=== PATIENT | female | born 1945 | race Caucasian/White ===

== ENCOUNTER 2016-10-17 16:34 | Inpatient (IN) ==
[2016-10-17] MEDS ORDERED: VANCOMYCIN 1 GM/NS 1 GM/250 ML IVPB IV ONE (17:15)
--- NOTE | 2016-10-17 17:16 | PROVIDER DOCUMENTATION ---
HPI-Rash/Wound/ReCheck - General Chief Complaint: Insect Bite/Sting Stated Complaint: poss infection Time Seen by Provider: 10/17/16 17:05 Source: patient, family Allergies/Adverse Reactions: Allergies Allergy/AdvReac Type Severity Reaction Status Date / Time No Known Allergies Allergy Verified 10/17/16 17:19 Home Medications: Home Medication List Medication Instructions Recorded Confirmed Last Taken Type Amitriptyline [Elavil] 100 mg PO HS 11/23/14 10/17/16 10/17/16 History Omeprazole [Prilosec] 40 mg PO DAILY 11/23/14 10/17/16 1 Day Ago History Docusate Sodium [Colace] 100 mg PO BID #60 capsule 11/29/14 10/17/16 1 Day Ago Rx SIMVAstatin [Zocor] 20 mg PO QPM #0 tablet 01/10/15 10/17/16 10/17/16 Rx - History of Present Illness-Dermatology Nature of Presenting Problem: 70 year old WF presents with c/o pain (dull), swelling and erythema to the left lateral chest wall for 1 week. pt reports fever, max temp 102 at home, chills, fatigue, loss of appetite and nausea. pt reports she has not eaten much today and is dizzy/lightheaded with standing. pain to chest wall is exacerbated with movement, sitting against chairs. pt has been evaluated at an outside clinic, placed on keflex without improvement. pt reports she may have been bitten by an insect. Location: reports: chest Quality: reports: painful, stinging Severity: reports: mild Onset/Duration: reports: 1 week ago Timing: reports: still present, constant Context/Associated Symptoms: reports: abscess, edema, fever Identifiable cause?: No Exposure: reports: unknown cause Locality of Occurance: Home Similar Symptoms Previously?: Yes Recently seen or treated by another doctor?: Yes Review of Systems - Adult - REVIEW OF SYSTEMS - ADULT Constitutional: reports: see HPI, chills, fever, fatique Eyes: reports: no symptoms reported. denies: discharge, blurred vision, double vision Ears, Nose, Mouth & Throat: reports: no symptoms reported. denies: ear discharge, ear pain, nose pain, loose teeth, throat pain, throat swelling Cardiovascular: reports: no symptoms reported. denies: chest pain, palpitations , syncope Respiratory: reports: no symptoms reported. denies: chronic cough, cough, shortness of breath, wheezing Gastrointestinal: reports: see HPI, nausea, poor appetite. denies: abdominal pain, diarrhea, vomiting Genitourinary: reports: no symptoms reported. denies: dysuria, hematuria, urgency Musculoskeletal: reports: no symptoms reported. denies: bone pain, joint pain, joint swelling, neck pain Integumentary: reports: see HPI, rash, skin sores/ulcer (abscess left chest wall ) Neurological: reports: no symptoms reported. denies: ataxia, dizziness/vertigo , headache/migraines Psychiatric: reports: no symptoms reported Endocrine: reports: no symptoms reported Hematologic/Lymphatic: reports: no symptoms reported Allergic/Immunologic: reports: no symptoms reported. denies: frequent infections All Other Systems: Reviewed and Negative Past History - Adult - PAST MEDICAL HISTORY-ADULT Review of Records: reports: Old Records Reviewed, Nursing Assessment Review, Medications Reviewed, Social history reviewed & non-contributory. Major Childhood Illnesses: reports: denies history Cardiovascular: reports: hyperlipidemia Respiratory: reports: denies history Gastrointestinal: reports: GERD Obstetrical/Gynecological: reports: denies history Genitourinary: reports: denies history Musculoskeletal: reports: denies history Neurological: reports: denies history Endocrine/Immune: reports: denies history Other Conditions: reports: denies history Additional History: Chronic Pain - PRIOR SURGERIES/PROCEDURES Surgical/Procedure History: reports: reviewed, not pertinent - PRIOR HOSPITALIZATIONS Prior Hospitalizations: reports: for other non-related - IMMUNIZATION STATUS Childhood Immunizations: See Nurse Assessment Flu Vaccine: NUTD - FAMILY HISTORY Family History: reviewed, not pertinent - SOCIAL HISTORY Smoking: denies, non-smoker Substance Use: none/never Alcohol Use Frequency: never Physical Exam-General - PHYSICAL EXAM-ADULT Initial Vital Signs Reviewed: Yes - CONSTITUTIONAL General Appearance: appears well, alert, no apparent distress. negative: mild distress, moderate distress, severe distress - EYES Eyes: pink conjunctivae - HEAD, EARS, NOSE, MOUTH & THROAT HENMT: normocephalic/atraumatic, moist mucous membranes - NECK Neck: non-tender, full range of motion, supple, normal inspection. negative: lymphadenopathy - RESPIRATORY Respiratory: chest non-tender, lungs clear, normal breath sounds, no pleuratic chest pain, no respiratory distress, no accessory muscle use. negative: respiratory distress, decreased breath sounds, accessory muscle use, crackles, rales, rhonchi, stridor, wheezing - CARDIOVASCULAR Cardiovascular: normal peripheral pulses, regular rate, rhythm - GASTROINTESTINAL (ABDOMEN) Abdominal Exam: normal bowel sounds, non tender, soft - LYMPHATIC Lymphatic: axilla node tender, inguinal node tender, enlargement - MUSCULOSKELETAL Back Exam: normal inspection, no CVA tenderness, no vertebral tenderness. negative: CVA tenderness, decreased range of motion, swelling, vertebral tenderness Extremity: normal range of motion, non-tender, normal gait, normal inspection, no pedal edema, no calf tenderness, normal capillary refill, deformity, erythema Peripheral Pulses: radial (R): 3+, radial (L): 3+, dorsalis-pedis (R): 3+, dorsalis-pedis (L): 3+ - SKIN Integumentary: normal color, normal turgor, warm/dry, erythema, swelling (left lateral chest wall with abscess 4cm by 4cm with diffuse erythema. diffuse erythema spreading to the left breast. area painful, hot to the touch.), tenderness, zoster-like rash (vesicles) - NEUROLOGIC Neurologic: grossly normal, no motor/sensory deficits - PSYCHIATRIC Psych/Mental Status: normal mood/affect, normal thought content, normal thought process, oriented x 3 Progress - PLAN OF CARE/RESULTS Progress/Plan/Lab Results: Vital Signs - 8 hr 10/17/16 16:41 10/17/16 19:13 Temperature 99.7 F H 99.2 F Pulse Rate 94 H 93 H Respiratory Rate 20 16 Blood Pressure 118/95 151/70 O2 Sat by Pulse Oximetry 98 100 Laboratory Results - last 24 hr 10/17/16 10/17/16 10/17/16 17:35 17:35 17:35 WBC 14.04 H RBC 3.65 L Hgb 10.4 L Hct 32.9 L MCV 90.1 MCH 28.5 MCHC 31.6 L RDW Std Deviation 15.3 H Plt Count 284 MPV 10.3 Immature Gran % (Auto) 0.2 Neut % (Auto) 76.6 H Lymph % (Auto) 14.9 L Cameron % (Auto) 7.6 Eos % (Auto) 0.6 Baso % (Auto) 0.1 Immature Gran # (Auto) 0.03 Neut # (Auto) 10.75 H Lymph # (Auto) 2.09 Cameron # (Auto) 1.07 H Eos # (Auto) 0.09 Baso # (Auto) 0.01 PT INR PTT (Actin FS) Sodium 135 L Potassium 3.5 Chloride 97 L Carbon Dioxide 25 Anion Gap 13 BUN 14 Creatinine 0.9 Estimated GFR/1.73 m2 > 60 BUN/Creatinine Ratio 16 Glucose 103 Calculated Osmolality 271 Calcium 9.1 Total Bilirubin 0.60 AST 20 ALT 19 Alkaline Phosphatase 88 Total Protein 7.8 Albumin 3.9 Globulin 3.9 Albumin/Globulin Ratio 1.0 Plasma Lactate 1.0 10/17/16 17:35 WBC RBC Hgb Hct MCV MCH MCHC RDW Std Deviation Plt Count MPV Immature Gran % (Auto) Neut % (Auto) Lymph % (Auto) Cameron % (Auto) Eos % (Auto) Baso % (Auto) Immature Gran # (Auto) Neut # (Auto) Lymph # (Auto) Cameron # (Auto) Eos # (Auto) Baso # (Auto) PT 10.5 INR 1.00 PTT (Actin FS) 28.8 Sodium Potassium Chloride Carbon Dioxide Anion Gap BUN Creatinine Estimated GFR/1.73 m2 BUN/Creatinine Ratio Glucose Calculated Osmolality Calcium Total Bilirubin AST ALT Alkaline Phosphatase Total Protein Albumin Globulin Albumin/Globulin Ratio Plasma Lactate Orders Category Date Time Status Saline Loc NOW Care 10/17/16 17:13 Active CHEST-2 VIEWS [RAD] Stat Exams 10/17/16 17:14 Completed BLOOD CULTURE [BLDCUL] Stat Lab 10/17/16 17:35 Results CBC WITH ELECTRONIC DIFF [HEME] Stat Lab 10/17/16 17:35 Completed COMPREHENSIVE METABOLIC PANEL [CHEM] Stat Lab 10/17/16 17:35 Completed LACTATE, PLASMA [CHEM] Stat Lab 10/17/16 17:35 Completed PROTIME WITH INR [COAG] Stat Lab 10/17/16 17:35 Completed PTT [COAG] Stat Lab 10/17/16 17:35 Completed URINALYSIS W/POSS RFLX CULT-1 [URINALYSIS] Stat Lab 10/17/16 17:13 Uncollected Vancomycin 1 gm/Ns Med 10/17/16 17:15 Discontinued 1 gm in 250 ml IV NOW EKG [EKG] Stat Ther 10/17/16 17:13 Ordered Laboratory Tests 10/17/16 10/17/16 10/17/16 17:35 17:35 17:35 WBC 14.04 H RBC 3.65 L Hgb 10.4 L Hct 32.9 L MCV 90.1 MCH 28.5 MCHC 31.6 L RDW Std Deviation 15.3 H Plt Count 284 MPV 10.3 Immature Gran % (Auto) 0.2 Neut % (Auto) 76.6 H Lymph % (Auto) 14.9 L Cameron % (Auto) 7.6 Eos % (Auto) 0.6 Baso % (Auto) 0.1 Immature Gran # (Auto) 0.03 Neut # (Auto) 10.75 H Lymph # (Auto) 2.09 Cameron # (Auto) 1.07 H Eos # (Auto) 0.09 Baso # (Auto) 0.01 PT INR PTT (Actin FS) Sodium 135 L Potassium 3.5 Chloride 97 L Carbon Dioxide 25 Anion Gap 13 BUN 14 Creatinine 0.9 Estimated GFR/1.73 m2 > 60 BUN/Creatinine Ratio 16 Glucose 103 Calculated Osmolality 271 Calcium 9.1 Total Bilirubin 0.60 AST 20 ALT 19 Alkaline Phosphatase 88 Total Protein 7.8 Albumin 3.9 Globulin 3.9 Albumin/Globulin Ratio 1.0 Plasma Lactate 1.0 10/17/16 17:35 WBC RBC Hgb Hct MCV MCH MCHC RDW Std Deviation Plt Count MPV Immature Gran % (Auto) Neut % (Auto) Lymph % (Auto) Cameron % (Auto) Eos % (Auto) Baso % (Auto) Immature Gran # (Auto) Neut # (Auto) Lymph # (Auto) Cameron # (Auto) Eos # (Auto) Baso # (Auto) PT 10.5 INR 1.00 PTT (Actin FS) 28.8 Sodium Potassium Chloride Carbon Dioxide Anion Gap BUN Creatinine Estimated GFR/1.73 m2 BUN/Creatinine Ratio Glucose Calculated Osmolality Calcium Total Bilirubin AST ALT Alkaline Phosphatase Total Protein Albumin Globulin Albumin/Globulin Ratio Plasma Lactate Orders Category Date Time Status Saline Loc NOW Care 10/17/16 17:13 Active CHEST-2 VIEWS [RAD] Stat Exams 10/17/16 17:14 Completed BLOOD CULTURE [BLDCUL] Stat Lab 10/17/16 17:35 Results CBC WITH ELECTRONIC DIFF [HEME] Stat Lab 10/17/16 17:35 Completed COMPREHENSIVE METABOLIC PANEL [CHEM] Stat Lab 10/17/16 17:35 Completed LACTATE, PLASMA [CHEM] Stat Lab 10/17/16 17:35 Completed PROTIME WITH INR [COAG] Stat Lab 10/17/16 17:35 Completed PTT [COAG] Stat Lab 10/17/16 17:35 Completed URINALYSIS W/POSS RFLX CULT-1 [URINALYSIS] Stat Lab 10/17/16 17:13 Uncollected Vancomycin 1 gm/Ns Med 10/17/16 17:15 Discontinued 1 gm in 250 ml IV NOW EKG [EKG] Stat Ther 10/17/16 17:13 Ordered Vital Signs - 24 hr 10/17/16 16:41 Temperature 99.7 F H Pulse Rate 94 H Respiratory Rate 20 Blood Pressure 118/95 O2 Sat by Pulse Oximetry 98 Reviewed radiology, H&P with Dr. Ervin, agrees with plan of care, admission. Result Diagrams: 10/17/16 17:35 10/17/16 17:35 - XRAY 1 XRAY Study: Chest Impression: Normal (no acute disease per Dr. Saldana.) - CONSULTS/PCP/HOSPITALIST Notification #1 *Consult/PCP/Hospitalist*: Dr. 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 Yuen Time Discussed: 19:34 (at bedside) Reason/Comments: Dr. Alpa rivera this is zoster Departure - Departure Date of Disposition Decision: 10/17/16 Time of Disposition Decision: 17:18 DIAGNOSIS: Abscess Cellulitis Qualifiers: Site of cellulitis: trunk Site of cellulitis of trunk: chest wall Qualified Code(s): L03.313 - Cellulitis of chest wall Fever Qualifiers: Fever type: unspecified Qualified Code(s): R50.9 - Fever, unspecified Disposition: ADMITTED INPATIENT 09 Certified Medical Emergency: Emergent Condition: Stable Referrals and Follow-Ups: Yung Simons MD [Primary Care Provider] - - Critical Care Note This patient required my direct & personal management of CC.: No Attestation - Physician/ PANDA Attestation Patient care was provided by Advanced Practice Provider:: Yes Advanced Practice Provider:: Juancarlos Thornton Advanced Practice Provider documentation review:: The Mid-level provider documentation, treatment plan and medical decision making was reviewed by the physician who agrees with all treatment and medical decision making by the P.
--- NOTE | 2016-10-17 17:28 | Diag Imaging Result Doc PS360 ---
EXAM: CHEST-2 VIEWS HISTORY: admission/fever TECHNIQUE: PA and lateral COMMENT: There is no evidence of acute cardiac or pulmonary disease. Compared to 01/08/2015 there is been no significant change in the appearance of the chest. IMPRESSION: No acute disease. Electronically signed by Trevon Saldana 10/17/2016 5:26 PM
[2016-10-17 17:53] LABS: MANUAL DIFF NEEDED? NO
[2016-10-17 17:56] LABS: BASO% 0.1 % (0.0-0.8); EOS# 0.09 X1000 (0.0-0.7); EOS% 0.6 % (0.0-10.0); HEMATOCRIT 32.9 % (37.0-47.0); HEMOGLOBIN 10.4 g/dL (12.0-16.0); IMM GRAN# 0.03 X1000 (0.0-0.04); IMM GRAN% 0.2 % (0.0-0.5); LYMPH# 2.09 X1000 (1.2-3.4); LYMPH% 14.9 % (20.5-51.1); MCH 28.5 PG (27-31); MCHC 31.6 g/dL (33-37); MCV 90.1 FL (81-99); MONO# 1.07 X1000 (0.11-0.59); MONO% 7.6 % (1.7-9.3); MPV 10.3 FL (7.4-10.4); NEUT% 76.6 % (42.2-75.2); PLT 284 X1000 (130-400); RBC 3.65 XMIL (4.2-5.4)
[2016-10-17 18:04] LABS: PROTIME 10.5 Seconds (9.2-11.7); PTT 28.8 Seconds (22.0-36.0)
[2016-10-17 18:19] LABS: AGAP 13; ALBUMIN 3.9 g/dL (3.5-5.0); ALKALINE PHOSPHATASE 88 U/L (32-104); BUN 14 mg/dL (8-22); CALCIUM 9.1 mg/dL (8.8-10.2); CHLORIDE 97 mmol/L (98-107); COSMO 271; GOT 20 U/L (10-30); GPT 19 U/L (10-36); POTASSIUM 3.5 mmol/L (3.5-5.1); SODIUM 135 mmol/L (136-145); TCO2 25 mmol/L (25-35); TOTAL PROTEIN 7.8 g/dL (6.3-8.3)
[2016-10-17] MEDS ORDERED: MORPHINE IV ONE (19:33)
[2016-10-17] MEDS ORDERED: VANCOMYCIN IV PER PHARMACY MISC SCH (20:44)
[2016-10-17] MEDS ORDERED: VALTREX PO ONE (20:44)
--- NOTE | 2016-10-17 21:05 | HISTORY AND PHYSICAL ---
Patient of Dr. Simons. REASON FOR ADMISSION: Two-day history of left-sided chest wall pain. Ms Mary Johansen 70- year-old lady past medical hyperlipidemia, reflux disease, comes in complaining about 4 days history of redness and pain in the left lateral aspect of her chest wall. She was given some Keflex a few days ago and thinking that she had an insect bite. She noticed some redness and swelling that when initially started and says that over the last 24 hours this redness has progressed anteriorly underneath her breast. She reports a temperature of 102 degrees and feels very fatigued, appetite has gone down, is having some chills as of yesterday evening. Applied some lotion with no significant relief. This accompanying chest pain which is stinging and burning constant and worsens when has any contact to the said area of redness. No trauma to the said area. No cough, no other additional cardiorespiratory symptoms. No GI, complaints, no neurological complaints. No radiation down her arm. She denies any arthralgias or rash elsewhere. REVIEW OF SYSTEMS: Twelve systems is negative, positive findings noted in HPI. ALLERGIES: No known allergies. MEDICATIONS: She takes and Elavil 100 mg at bedtime, Colace 100 mg b.i.d., Prilosec 40 mg daily, simvastatin 20 mg q.p.m. FAMILY HISTORY: Patient denies any heart, diabetes or cancer problems. SURGICAL HISTORY: Of a vaginal hysterectomy, she has had a bladder tack. SOCIAL HISTORY: Lives alone. Does not smoke, drink or use drugs. LAB WORK: White count 14,000 hemoglobin and hematocrit 12 and 32, platelets 284,000, potassium 3.5, sodium 135, lactate 1, PTT normal, chest x-ray no acute intracranial process. PHYSICAL EXAMINATION: GENERAL: Elderly woman who is in mild to moderate distress from her pain. VITAL SIGNS: Blood pressure is 151/70, heart rate is 93, respirations 16, temperature was 99.2 degrees, 100% room air. HEENT: Head is normocephalic. PERRLA, EOMI, is anicteric, not pale, ENT exam grossly normal. NECK: Supple. No JVD, carotid bruit, thyromegaly. CHEST: Clear to auscultation. Good air entry both lung patiño. CARDIOVASCULAR: First, 2nd heart sounds heard. There is noticeable thick band of erythema extending from the posterolateral aspect of her left chest in the around T4 and T5 dermatomes on the left side extending to underneath her breast. There are few vesicular lesions in this area of redness. She has hyperalgesia to touch in this area. Also the skin is also indurated and warm to touch. No areas of fluctuance. ABDOMEN: Full, soft, no hepatosplenomegaly, bowel sounds normal. RECTAL: Deferred this time. EXTREMITIES: No edema, clubbing, cyanosis, no joint swelling . NEUROLOGICAL: No focal deficits appreciated. SKIN: See above. Otherwise grossly unremarkable elsewhere. MUSCULAR EXAM: Grossly unremarkable elsewhere. ASSESSMENT: At this time is 1. Herpes zoster reactivation. 2. Super infected cellulitis of left dermatome 4-5 area. 3. Hyperlipidemia. 4. Reflux disease. 5. Anemia of chronic inflammation. 6. Hypokalemia. PLAN: This time start patient on Valtrex and as patient does not have multiple dermatomal involvement. I do suspect that she does have superimposed bacterial infection and we can start on vancomycin and clindamycin to cover staph or strep. Consult ID for further input. Pain control will be a host of either NSAIDs, Ultracet and morphine. DVT prophylaxis will be Lovenox as patient will probably be bedbound not moving a lot. cc: MD Yung Bronson MD
[2016-10-17] MEDS: CELEBREX PO SCH (21:48)
[2016-10-17] MEDS: ZOCOR PO SCH (21:48)
[2016-10-17] MEDS: ULTRACET 37.5MG/325MG PO PRN (21:49)
[2016-10-17] MEDS: CLINDAMYCIN 600 MG/NS 600 MG/50 ML IVPB IV SCH (21:50)
[2016-10-17] MEDS: LOVENOX SUBQ SCH (21:50)
[2016-10-17] MEDS: NS 1,000 ML IV SCH (21:56)
[2016-10-17] MEDS: ELAVIL PO SCH (21:57)
[2016-10-18] MEDS: MORPHINE IV PRN ×5 (00:26→20:02)
[2016-10-18] MEDS: CLINDAMYCIN 600 MG/NS 600 MG/50 ML IVPB IV SCH (05:13)
[2016-10-18] MEDS: PRILOSEC PO SCH (06:18)
[2016-10-18] MEDS: NS 1,000 ML IV SCH (06:19)
[2016-10-18 06:20] LABS: MANUAL DIFF NEEDED? NO
[2016-10-18 06:35] LABS: BASO% 0.1 % (0.0-0.8); EOS# 0.23 X1000 (0.0-0.7); EOS% 2.6 % (0.0-10.0); HEMATOCRIT 29.7 % (37.0-47.0); HEMOGLOBIN 9.2 g/dL (12.0-16.0); IMM GRAN# 0.02 X1000 (0.0-0.04); IMM GRAN% 0.2 % (0.0-0.5); LYMPH# 2.08 X1000 (1.2-3.4); LYMPH% 23.3 % (20.5-51.1); MCH 28.1 PG (27-31); MCV 90.8 FL (81-99); MONO# 0.82 X1000 (0.11-0.59); MONO% 9.2 % (1.7-9.3); MPV 10.3 FL (7.4-10.4); NEUT% 64.6 % (42.2-75.2); PLT 224 X1000 (130-400); RBC 3.27 XMIL (4.2-5.4)
[2016-10-18 07:00] LABS: AGAP 8; ALBUMIN 3.3 g/dL (3.5-5.0); ALKALINE PHOSPHATASE 85 U/L (32-104); BUN 14 mg/dL (8-22); CALCIUM 8.2 mg/dL (8.8-10.2); CHLORIDE 104 mmol/L (98-107); COSMO 273; GOT 22 U/L (10-30); GPT 16 U/L (10-36); POTASSIUM 3.4 mmol/L (3.5-5.1); SODIUM 137 mmol/L (136-145); TCO2 25 mmol/L (25-35); TOTAL BILIRUBIN 0.54 mg/dL (0.20-1.00); TOTAL PROTEIN 6.8 g/dL (6.3-8.3)
[2016-10-18] MEDS: VALTREX PO SCH ×3 (07:30→14:00)
[2016-10-18] MEDS: CELEBREX PO SCH ×2 (07:31→08:34)
[2016-10-18] MEDS ORDERED: KLOR-CON PO ONE (07:42)
[2016-10-18] MEDS ORDERED: MEDROL DOSEPAK PO SCH (07:45)
[2016-10-18] MEDS: MEDROL PO SCH ×4 (08:04→22:31)
[2016-10-18] MEDS: ULTRACET 37.5MG/325MG PO PRN ×3 (08:04→22:32)
[2016-10-18 08:23] LABS: URINE MICRO REVIEW NEEDED? NO; URINE SOURCE CLEAN CATCH
[2016-10-18 08:29] LABS: BILIRUBIN URINE NEGATIVE (NEGATIVE); BLOOD URINE TRACE (NEGATIVE); COLOR YELLOW; GLUCOSE URINE NEGATIVE (NEGATIVE); LEUKOCYTES URINE LARGE (NEGATIVE); NITRITE URINE NEGATIVE (NEGATIVE); PROTEIN URINE 30 mg/dL (NEGATIVE); SP GRAVITY URINE 1.022; TURBIDITY URINE HAZY (CLEAR); UROBILINOGEN URINE NORMAL (NORMAL)
[2016-10-18 08:30] LABS: UR EPITHELIAL CELLS >10 /HPF (<10); URINE BACTERIA 2+ /HPF; URINE CULTURE NEEDED? YES; URINE RBC <10 /HPF (<10); URINE WBC TNTC /HPF (<10)
--- NOTE | 2016-10-18 11:40 | PROGRESS NOTE ---
DATE: 10/18/2016 SUBJECTIVE: A 70-year-old, white female who was admitted last night by hospitalist with left- sided chest wall pain. The patient was diagnosed with extensive cellulitis with a shingles rash with the dermatomal distribution T4 level. Complains of pain. PAST MEDICAL HISTORY: Reported hyperlipidemia, acid reflux disease, metabolic syndrome. PAST SURGICAL HISTORY: Hysterectomy and bladder tack repair. REVIEW OF SYSTEMS: HEENT: No headache. No vision problem. Neck: There is no neck pain. Cardiopulmonary: Chest wall pain and rash. No shortness of breath, PND, orthopnea. GI: No nausea, vomiting, abdominal pain. : No history of hesitancy, frequency. No swelling of feet. PHYSICAL EXAMINATION: Vital Signs: Afebrile. Vital signs are stable. Pulse is 80, blood pressure is 133/62, pulse oximetry 97% on room air, 5 feet 2 inches, 172 pounds. HEENT Examination: Within normal limits. General: No anemia. No cyanosis. No clubbing. Neck: Supple. No lymphadenopathy. No goiter. Chest: Bilateral air entry. Heart: Heart sounds are regular. Skin: Extensive shingles rash on the left side with cellulitis. Abdomen: Belly is soft, nontender. Good bowel sounds. No masses palpable. Extremities: No peripheral edema or cyanosis. Neurologic: No obvious neurological deficits noted. INVESTIGATIONS: CBC: White cell count 8.9, hematocrit 30, platelet count 224, 000. SMA-7: Sodium 137, potassium 3.4, carbon dioxide 25, BUN 14, creatinine 0.8, glucose 82. LFTs were normal. Urinalysis is positive for infection. Blood cultures and urine cultures are pending. Chest x-ray was no acute disease. ASSESSMENT AND PLAN: 1. Left-sided chest wall pain, shingles with localized cellulitis. Plan is continue on intravenous vancomycin and Valtrex. Added Medrol Dosepak. 2. Hypokalemia. Replace the potassium. 3. Pain control with morphine. 4. Deep venous thrombosis prophylaxis with Lovenox. 5. Continue home medicines and Elavil and Celebrex. 6. Hyperlipidemia, on Zocor. 7. Chronic anemia stable . We will follow up. LEVEL OF DOCUMENTATION: 35 minutes. cc: MD Yung Nina MD MTDD
--- NOTE | 2016-10-18 17:25 | Diag Imaging Result Doc PS360 ---
EXAM: CT THORAX W/O CONTRAST HISTORY: L chest wall abscess TECHNIQUE: CT of the chest without contrast with dose reduction (clarity.) COMMENT: There is some atelectasis or fibrosis present in the left lower lobe. There are no previous thoracic studies available for comparison, however compared to the portion of the chest included on the previous abdominal study of 12/29/2014 there is actually less linear opacity in the left lower lobe. Some apical pleural fibrosis is present on the right. There is a calcified granuloma in the inferior right upper lobe. There is no evidence of significant adenopathy. There is a fairly large amount of stool in the hepatic flexure of the colon. There are stones in the gallbladder. There is hepatic steatosis. There is a inhomogeneous area of soft tissue density in the subcutaneous fat laterally over the left chest. Some edema is seen along the lateral aspect of the latissimus dorsi. There is an 18 mm left axillary node. The maximum axial dimension of the subcutaneous abnormality is 5.5 cm. There is skin thickening. IMPRESSION: Possibility of a subcutaneous abscess on the left cannot be excluded. Electronically signed by Trevon Saldana 10/18/2016 5:23 PM
[2016-10-18] MEDS: VANCOMYCIN 1 GM/NS 1 GM/250 ML IVPB IV SCH (17:34)
[2016-10-18] MEDS: ZOCOR PO SCH (20:03)
[2016-10-18] MEDS: LOVENOX SUBQ SCH (20:03)
[2016-10-18] MEDS: ELAVIL PO SCH (20:03)
--- NOTE | 2016-10-18 20:41 | CONSULTATION ---
DATE OF CONSULTATION: 10/18/2016 CONCLUSION: Patient is admitted to the hospital with a left chest area of erythema. There is 1 vesicle. The area is tender and it is fluctuant. Patient surely has cellulitis. I am concerned that this is not due to shingles and that she has possibly an abscess in the chest wall rather than shingles. The patient also may have a urinary tract infection as manifested by a urinalysis which showed white cells and bacteria. RECOMMENDATIONS: I agree with covering the patient with vancomycin and Zosyn. I have ordered a noncontrasted CT scan of the thorax. I have requested that the results be called to me on my pager. DISCUSSION: The patient approximately 4 days ago had the onset of pain in the left lateral chest area associated with a blister. She does not remember having any type of insect bite. The red area has increased in size, but she does not have any further blister formation. Patient feels that she is getting somewhat better. Patient's laboratory studies show a CBC whose white count was 14,000. Today it was 8940, hemoglobin 9.2, and platelet count 224,000. Creatinine is 0.8. GFR is greater than 60. Liver function studies are normal. Urinalysis shows white cells and bacteria. Urine and blood cultures are pending. ENTRY LEVEL ACCOUNT EXECUTIVE HISTORY: The patient is a 3 para 3 AB 0. She delivered 1 of her children by C- section. She has had a hysterectomy. PREVIOUS HOSPITALIZATIONS AND OPERATIONS: She has had 2 labor and deliveries, a hysterectomy, a C- section, and bladder surgery. MEDICAL DISEASES: Hyperlipidemia, gastroesophageal reflux disease. Medical diseases negative for diabetes mellitus and cancer. FAMILY HISTORY: Positive for COPD and dementia. INFECTIOUS DISEASE HISTORY: Positive for pneumonia. [place]IAL HISTORY[place] . She lives with another family member. She does not have any pets at home. ALLERGIES: She does not have any allergies. HOME MEDICATIONS: Zocor, Prilosec, Colace and Elavil. PHYSICAL EXAMINATION: Vital Signs: Temperature is 98.1 degrees, pulse 84, respirations 20, blood pressure 121/59. General: This is an ill-appearing, elderly female. She is in no acute distress. Head, eyes, ears, nose, and throat: She is wearing dentures. There is no drainage coming from her nose or ears. She can see near objects. Her hearing is intact. Neck: No meningismus. Thorax: On the upper right lateral side of the left chest, there is an erythematous area that is tender. There is 1 vesicular lesion in the midst of it. The area is questionably fluctuant. ASSESSMENT AND PLAN: I think the patient has a left chest cellulitis, possible abscess. I do not think it is zoster because I can only see 1 vesicle instead of multiple vesicular lesions. My plan though, however, to continue Valtrex as well as vancomycin. I have ordered a non IV contrasted CT scan of the chest to look for cellulitis and abscess. Thank you for the consult. cc: MD Yung Moreira MD
[2016-10-19] MEDS: PRILOSEC PO SCH (06:28)
[2016-10-19] MEDS: MEDROL PO SCH ×4 (08:41→21:30)
[2016-10-19] MEDS: MORPHINE IV PRN (08:41)
[2016-10-19] MEDS: CELEBREX PO SCH (08:55)
[2016-10-19] MEDS ORDERED: BENADRYL IV PRN (11:30)
--- NOTE | 2016-10-19 12:39 | PROGRESS NOTE ---
DATE: 10/19/2016 PRESENT ILLNESS: The patient has an area on her left chest of erythema and possible abscess. This may have been caused by an insect bite. The patient does not remember being bitten by something and she does not remember any other trauma to her chest. MEDICATIONS: Patient is receiving a combination of vancomycin and Zosyn. PHYSICAL EXAMINATION: Vital Signs: Temperature is 98.6 degrees, pulse 85, respirations 18, blood pressure 125/65. Generally: This is a fairly healthy-appearing, elderly female. She is in no acute distress. Lungs: Clear to auscultation. Cardiovascular: Regular heart rate. Abdomen: Soft and nontender. Thorax: On the left upper part of the thorax, there is a linear erythematous area with 1 vesicular lesion. The erythematous the wound is tender and in the middle it appears to me to be fluctuant. MEDICATIONS: The patient is on a combination of vancomycin and Zosyn. LABORATORY AND X-RAY: A CT scan of the chest shows a soft tissue density with possible abscess in the left part of the chest. Urinalysis shows white cells and bacteria. Blood cultures are sterile. A urine culture shows no growth. CT scan showed a soft tissue density with possible abscess. ASSESSMENT AND PLAN: The patient has cellulitis with possible abscess formation. I doubt this is due to shingles. The plan is to continue with current antibiotic therapy. A surgical consult with Dr. Nettles has been ordered to see if he feels any type of drainage procedure is indicated. COMORBIDITIES: She does not really have any good comorbidity, except the fact that she is elderly and may have suffered an insect bite causing her chest infection. cc: MD Yung Moreira MD
[2016-10-19] MEDS: VANCOMYCIN 1 GM/NS 1 GM/250 ML IVPB IV SCH ×2 (17:43→18:02)
[2016-10-19] MEDS ORDERED: NEO-SYNEPHRINE ONE (17:59)
[2016-10-19] MEDS ORDERED: XYLOCAINE-MPF 2% ONE (17:59)
[2016-10-19] MEDS ORDERED: DIPRIVAN 1% ONE (17:59)
[2016-10-19] MEDS ORDERED: FENTANYL ONE (18:02)
[2016-10-19] MEDS ORDERED: SENSORCAINE 0.25%/EPI 1:200,000 ONE (18:11)
--- NOTE | 2016-10-19 18:19 | CONSULTATION ---
DATE OF CONSULTATION: 10/19/2016 HISTORY OF PRESENT ILLNESS: Ms. Johansen is a 70-year-old white female who was admitted through the emergency department with a 2-day history of left-sided chest pain. She felt she had an insect bite and was given Keflex but she noticed increasing cellulitis and pain in the area of her left flank and presented to the emergency department and was admitted by our hospitalist. We are asked to evaluate her for soft tissue infection. PAST MEDICAL HISTORY: Hyperlipidemia, gastroesophageal reflux disease. MEDICATIONS: Elavil, Colace, Prilosec and simvastatin. PAST SURGICAL HISTORY: Vaginal hysterectomy and bladder tack. She has also had a history of I and D's of infections right axilla. SOCIAL HISTORY: She lives alone. She does not smoke. FAMILY HISTORY: Noncontributory. REVIEW OF SYSTEMS: A 14-point review of systems was performed and was essentially negative except for the history of present illness. PHYSICAL EXAMINATION: General: Ms Johansen is an older white female. She is overweight. She is in no acute distress. Awake, pleasant. She has she has cellulitis and what appears to be a soft tissue infection, left flank. She had no evidence of jaundice. No oral lesions. No cervical or supraclavicular lymphadenopathy. Heart: Regular rate. Lungs: Clear. Abdomen: Soft and nontender. There is no mass. No costovertebral tenderness. Rectal/Vaginal: Exams were not performed. She does have palpable peripheral pulses throughout. No peripheral edema. Neurological: She is alert and oriented x3 and appropriate. IMPRESSION: Soft tissue infection, left flank. PLAN: Incision and drainage of soft tissue infection left flank this evening. She ate a regular lunch and therefore we have to delay the surgery, per anesthesia. I have discussed the procedure in detail with her. She understands that she will have an open wound to drain this infection. cc: MD Yung Rico MD
[2016-10-19] MEDS: MORPHINE ONE ×3 (19:04→19:22)
--- NOTE | 2016-10-19 19:55 | PROGRESS NOTE ---
DATE: 10/19/2016 SUBJECTIVE: Apparently the patient was seen by Dr. Sinclair. He thinks it looks like a cellulitis with impending abscess. He ordered a CT of the chest. It is confusing. There is only one blister. The patient has a significant left-sided T4 dermatomal distribution with the rash. I believe it looks like shingles with a superinfection. However, Dr. Sinclair discontinued the Famvir. He also consulted Dr. Nettles. REVIEW OF SYSTEMS: Low grade fever. OBJECTIVE: Height is 5 feet 2 inches. Blood pressure 123/59. I's and O's are 1170 mL positive. HEENT: Within normal limits. Neck is supple. Chest: Bilateral entry. Heart sounds are regular. Chest wall with significant redness, cellulitis, with impending abscess on the exam. Belly is soft, nontender. Good bowel sounds. No masses palpable. Nonfocal exam. DIAGNOSTIC DATA: No investigations reported today. CT of the chest was done on 10/18/2016 with possible subcutaneous abscess in the left. ASSESSMENT AND PLAN: 1. Left-sided chest wall pain, questionable shingles with superinfection. Recommendations as per Dr. Joon Sinclair. Continue on IV antibiotics and possible I and D if no improvement. Dr. Nettles is on standby. 2. DVT prophylaxis with Lovenox. 3. Hyperlipidemia, on Zocor. 4. The patient developed itching after Celebrex It could be from the morphine. We will use Benadryl as needed. We will discontinue morphine. Level of documentation is 25 minutes in followup. cc: MD Yung Nina MD MTDD
--- NOTE | 2016-10-19 20:15 | OPERATIVE NOTE ---
PROCEDURE DATE: 10/19/2016 PREOPERATIVE DIAGNOSIS: Soft tissue infection, left flank. POSTOPERATIVE DIAGNOSIS: Soft tissue infection, left flank. PRINCIPAL PROCEDURE: Incision and drainage of left flank soft tissue infection with irrigation and packing. SURGEON: Kayleigh Nettles MD. ANESTHESIA: General using LMA. We also use local anesthetic. ESTIMATED BLOOD LOSS: 25 mL. DRAINS: None. INDICATIONS: Ms. Mary Johansen is a 70-year-old white female who has been admitted with a left flank soft tissue infection. We were asked to evaluate her. FINDINGS: She had thick grayish purulence within the soft tissue of her left flank. Cultures were taken. All purulence was removed with suction. We thoroughly irrigated the wound and packed it open with iodoform gauze. DESCRIPTION OF PROCEDURE: The patient was brought to the operating room, placed supine, received general anesthesia, and was ventilated with an LMA. She was already on IV antibiotics. Her left flank was prepped and draped within the sterile field. There was surrounding cellulitis. The was an area of fluctuance. I have made a transverse incision overlying the area of fluctuance and purulence was drained. We made sure that the abscess cavity was widely opened using a 15 blade scalpel. Cautery was used to control bleeding. We did take cultures and the purulence was removed in its entirety. We irrigated the abscess cavity and packed it with 1 inch gauze. Dressings were applied. She will go to the recovery room, return to the floor. cc: MD Yung Rico MD
[2016-10-19] MEDS: ZOCOR PO SCH (21:31)
[2016-10-19] MEDS: ELAVIL PO SCH (21:31)
[2016-10-19] MEDS: LOVENOX SUBQ SCH (21:31)
[2016-10-20] MEDS: PRILOSEC PO SCH (06:37)
[2016-10-20 08:06] VITALS: BP 160/71
[2016-10-20] MEDS: MEDROL PO SCH (08:34)
[2016-10-20] MEDS: CELEBREX PO SCH (08:34)
--- NOTE | 2016-10-20 10:12 | DISCHARGE SUMMARY ---
ADMISSION DATE: 10/17/2016 DISCHARGE DATE: 10/20/2016 ADMITTING DIAGNOSIS: Soft tissue infection, left flank. DISCHARGE DIAGNOSIS: Soft tissue infection, left flank. PRINCIPAL PROCEDURE: Incision and drainage with irrigation and packing of left flank infection on 10/19/2016. DISCHARGE DISABILITIES: Full. DISCHARGE DISPOSITION: She will return to our outpatient offices this coming Wednesday for recheck. DISCHARGE MEDICATIONS: She is to return to her home medication. I also gave her on Bactrim DS as a discharge antibiotic. DISCHARGE DIET: Is regular. HOSPITAL COURSE: Ms. Mary Johansen is a 70-year-old white female who was hospitalized through our emergency department on 10/17/2016 with cellulitis and pain involving her left flank. She underwent a chest CT on hospital day 2 which suggested the possibility of soft tissue abscess, left flank. Dr. Joon Sinclair was consulted and then I was consulted on 10/19/2016 because of this infection. She was receiving IV antibiotics. I took her to the operating room on the evening of 10/19/2016 and performed incision and drainage of this infection. Cultures were taken at the time of surgery. We packed the wound open. On postop day 1, 10/20/2016, her cellulitis was already resolving. Clinically she felt much better. The wound appeared to be clean. I removed the packing and gave her discharge instructions. She will followup in our outpatient offices later this week. She may have to follow up with Dr. Joon Sinclair because she has had a history of the soft tissue infections in the past. She might be colonized with MRSA. Cultures were pending at the time of discharge. She will be given Bactrim DS. She is allergic to nothing. Has discharge antibiotics. She knows to contact us with any increasing redness or pain involving the area of her wound. She does have family at home to help care for her wound. cc: MD Yung Rico MD
--- NOTE | 2016-10-20 11:24 | PROGRESS NOTE ---
DATE: 10/20/2016 SUBJECTIVE: Ms. Johansen was admitted with a possible abscess on the left chest. Abscess was incised and drained by Dr. Nettles, who wants to send her home with a prescription of Septra DS, and she will be sent home today. Will discharge her today to be followed in the office. -9 cc: Yung Simons MD
--- NOTE | 2016-10-20 11:33 | DISCHARGE SUMMARY ---
ADMISSION DATE: 10/17/2016 DISCHARGE DATE: 10/20/2016 HOSPITAL COURSE: Ms. Johansen who is a 70-year-old, white female was admitted with a rash on the left side of chest which appeared like herpes zoster and she had some cellulitis. She was seen by Dr. Sinclair who thought that it was probably not shingles and something else. A CT scan of the chest was performed which revealed something like an abscess possible, a subcutaneous abscess on the left side. Dr. Nettles was consulted. He incised and drained it. He put her on Septra DS. Initially, she was treated with IV vancomycin. We will discharge her today as per Dr. Nettles. FINAL DIAGNOSIS: Abscess in the chest wall. cc: Yung Simons MD
--- NOTE | 2016-10-23 04:15 | DISCHARGE SUMMARY ---
ADMISSION DATE: 10/17/2016 DISCHARGE DATE: 10/20/2016 DISCHARGE SUMMARY ADDENDUM: Ms. Johansen was admitted with cellulitis on the chest wall on the left side. She had signs and symptoms of localized infection only. She has cellulitis and she had localized abscess. cc: Yung Simons MD
== END 2016-10-20 12:26 | disposition home or self-care (01) ==
LOC: ED 16:34 → SUATTDRO 20:04 → 3N 20:04
PROVIDERS: ADMIT Internal Medicine; ATTEND Internal Medicine

== ENCOUNTER 2019-02-20 15:02 | Inpatient (IN) ==
[2019-02-20] MEDS ORDERED: LABETALOL IV PRN (16:15)
[2019-02-20] MEDS: PROTONIX IV SCH (16:25)
[2019-02-20] MEDS: SODIUM CHLORIDE 0.9% INJ SCH (16:25)
[2019-02-20] MEDS: ZOFRAN IV PRN ×2 (16:26→22:19)
[2019-02-20] MEDS: D5 1/2 NS + KCL 20 MEQ 1,000 ML IV SCH (16:26)
--- NOTE | 2019-02-20 16:42 | EKG Report ---
Test Performed on : 02/20/2019 4:18:34 PM Test Reason : new patient abd pain Blood Pressure : / mmHG Vent. Rate : 075 BPM Atrial Rate : 075 BPM P-R Int : 156 ms QRS Dur : 080 ms QT Int : 406 ms P-R-T Axes : 061 031 035 degrees QTc Int : 453 ms Normal sinus rhythm. Normal ECG When compared with ECG of 15-MAR-2018 06:43, No significant change was found Unconfirmed Result
--- NOTE | 2019-02-20 17:07 | Diag Imaging Result Doc PS360 ---
CT ABDOMEN/PELVIS W/O CONTRAST - 02/20/2019 INDICATION: new patient admit abd pain COMPARISON: 02/06/2017 FINDINGS: There is stable linear scarring in the left lung base. No infiltrates in the lung bases. There are small gallstones in the gallbladder stable from prior. No gallbladder inflammation. No radiodense renal stones. No hydronephrosis or hydroureter. Stable mild constipation. Stable severe diverticulosis of the sigmoid colon. No bowel obstruction or inflammation. Uterus is absent. Urinary bladder and rectum are normal. There are chronic bilateral L5 pars defects. There are moderate degenerative changes of the spine. No acute or suspicious bony lesion. IMPRESSION: Constipation. Diverticulosis coli. Small gallstones in the gallbladder. This exam was performed using automated exposure control, adjustment of mA or kV according to patient size, and/or use of iterative reconstruction technique Electronically signed by Darvin Godwin 02/20/2019 5:04 PM
[2019-02-20] MEDS ORDERED: FLU VACCINE IM ONE (17:24)
[2019-02-20] MEDS ORDERED: PREVNAR 13 IM ONE (17:24)
[2019-02-20 18:10] LABS: BASO# 0.02 X1000 (0.0-0.2); BASO% 0.3 % (0.0-0.8); EOS# 0.09 X1000 (0.0-0.7); EOS% 1.3 % (0.0-10.0); HEMOGLOBIN 12.4 g/dL (12.0-16.0); LYMPH# 1.73 X1000 (1.2-3.4); LYMPH% 24.2 % (20.5-51.1); MCH 30.4 PG (27-31); MCHC 31.8 g/dL (33-37); MCV 95.6 FL (81-99); MONO# 0.37 X1000 (0.11-0.59); MONO% 5.2 % (1.7-9.3); NEUT# 4.94 X1000 (1.4-6.5); PLT 220 X1000 (130-400); RBC 4.08 XMIL (4.2-5.4); WBC 7.15 X1000 (4.8-10.8)
[2019-02-20 18:27] LABS: AGAP 11; ALB/GLOB RATIO 1.3; ALBUMIN 4.2 g/dL (3.5-5.0); ALKALINE PHOSPHATASE 80 U/L (32-104); BUN 9 mg/dL (8-22); CALCIUM 9.2 mg/dL (8.8-10.2); CHLORIDE 95 mmol/L (98-107); COSMO 264; CREATININE 0.6 mg/dL (0.5-0.9); ESTIMATED GFR > 60; GLUCOSE 108 mg/dL (70-104); GOT 60 U/L (10-30); GPT 30 U/L (10-36); POTASSIUM 3.7 mmol/L (3.5-5.1); SODIUM 132 mmol/L (136-145); TCO2 26 mmol/L (25-35); TOTAL BILIRUBIN 0.39 mg/dL (0.20-1.00); TOTAL PROTEIN 7.4 g/dL (6.3-8.3)
[2019-02-20 18:37] LABS: AMYLASE 149 U/L (20-200); LIPASE 124 U/L (13-60)
[2019-02-20] MEDS: ELAVIL PO SCH (20:09)
[2019-02-20] MEDS: ATIVAN PO SCH (20:10)
--- NOTE | 2019-02-20 21:43 | Diag Imaging Result Doc PS360 ---
CHEST-2 VIEWS - 02/20/2019 INDICATION: new patient admit abd pain COMPARISON: 03/14/2018 FINDINGS: The lungs are normally expanded and clear. Heart size and mediastinal contours are normal. No pneumothorax or pleural effusion. IMPRESSION: Negative exam. Electronically signed by Darvin Godwin 02/20/2019 9:41 PM
[2019-02-21] MEDS: D5 1/2 NS + KCL 20 MEQ 1,000 ML IV SCH ×2 (05:17→18:00)
[2019-02-21] MEDS: LEVAQUIN 750 MG/D5W 750 MG/150 ML IVPB IV SCH (08:55)
--- NOTE | 2019-02-21 09:37 | PROGRESS NOTE ---
DATE: 02/21/2019 Ms. Johansen is feeling better. Her vital signs are stable. Abdomen is soft but slightly tender in the epigastric area. She is on clear liquids at the present time. Her amylase and lipase are slightly elevated. She has gallbladder stones with cholelithiasis and possibly cholecystitis. However, the white count is normal. We are going to start IV Levaquin on her. We will probably get a GI consult for pancreatitis and abdominal pain which could be secondary from the gallbladder issues. cc: Yung Simons MD
--- NOTE | 2019-02-21 10:38 | HISTORY AND PHYSICAL ---
HISTORY OF PRESENT ILLNESS: Ms. Johansen is a 73-year-old white female, came with recurrent vomiting and abdominal pain. She had some epigastric pain. Vomiting was frequent. She even vomited in our office. She has a history of GERD in the past. However, there is no hematemesis, no melena. Abdominal pain is mostly restricted to the epigastric area. PAST HISTORY: She has a total hysterectomy and bladder repair for incontinence and she says she has never felt good after the bladder repair. She had a history of fracture of several ribs on the left side. She has history of severe anxiety, chronic pain from degenerative disk disease in the lumbar spine. She also has a history of mild hypertension. She could not take her blood pressure medicine on account of the recurrent vomiting. She does not smoke, does not drink and she is not allergic to any medications. REVIEW OF SYSTEMS: Other than what has been mentioned is negative for diarrhea, constipation, hematemesis, or melena. Cardiopulmonary, negative for chest pains. She is very anxious. PHYSICAL EXAMINATION: VITAL SIGNS: Patient is alert, oriented. According to the daughter, she gets slightly confused at home. VITAL SIGNS: Temperature 99 degrees Fahrenheit, pulse 75 per minute, respiratory rate 20 per minute, blood pressure 146/66. HEAD: Normocephalic. Pupils PERRLA. Fundus examination normal. NECK: Supple. JVP normal. EARS, NOSE, THROAT: Unremarkable. There is no evidence of lymphadenopathy, thyroid enlargement. EXTREMITIES: No pedal edema, calf tenderness, cyanosis or clubbing. Pedal pulses well felt. BREAST EXAM: Normal. CHEST: Normal inspection. LUNGS: Clear on auscultation. PMI in the normal position. HEART: Sounds normal. No murmur, gallop or rub noted. ABDOMEN: Nondistended. It is definitely tender in the epigastric area. No guarding, rigidity, free fluid, masses, or organomegaly. Bowel sounds normal. RECTAL: Deferred. CENTRAL NERVOUS SYSTEM: Higher functions. Patient is apprehensive. Cranial nerves normal. Motor and sensory system examination unremarkable. Deep tendon reflexes normal. Plantars downgoing. skull& spine ]examination normal for age. No cerebellar signs, signs of meningeal irritation on locomotor exam. SKIN: Unremarkable except for dehydration. CLINICAL IMPRESSION: Recurrent vomiting, dehydration, abdominal pain, possible gallbladder disease, possible pancreatitis. PLAN: To get serum amylase and CT scan of the abdomen. cc: Yung Simons MD MTDD
[2019-02-21 11:02] LABS: URINE SOURCE CLEAN CATCH
[2019-02-21 11:05] LABS: BILIRUBIN URINE NEGATIVE (NEGATIVE); BLOOD URINE NEGATIVE (NEGATIVE); COLOR YELLOW; GLUCOSE URINE NEGATIVE (NEGATIVE); KETONE URINE NEGATIVE (NEGATIVE); LEUKOCYTES URINE MODERATE (NEGATIVE); NITRITE URINE NEGATIVE (NEGATIVE); PH URINE 6.5; PROTEIN URINE NEGATIVE (NEGATIVE); SP GRAVITY URINE 1.007; TURBIDITY URINE CLEAR (CLEAR); UR EPITHELIAL CELLS <10 /HPF (<10); URINE BACTERIA NEGATIVE /HPF; URINE RBC <10 /HPF (<10); UROBILINOGEN URINE NORMAL (NORMAL)
[2019-02-21] MEDS: ZOFRAN IV PRN (13:49)
[2019-02-21] MEDS: MORPHINE IV PRN (13:50)
[2019-02-21] MEDS: PROTONIX IV SCH (16:13)
[2019-02-21] MEDS: SODIUM CHLORIDE 0.9% INJ SCH (16:13)
[2019-02-21] MEDS: ATIVAN PO SCH (22:10)
[2019-02-21] MEDS: ELAVIL PO SCH (22:10)
[2019-02-22] MEDS: D5 1/2 NS + KCL 20 MEQ 1,000 ML IV SCH ×2 (06:09→18:48)
[2019-02-22] MEDS: LEVAQUIN 750 MG/D5W 750 MG/150 ML IVPB IV SCH (08:07)
[2019-02-22] MEDS: MIRALAX PO SCH ×2 (09:39→22:12)
--- NOTE | 2019-02-22 09:53 | PROGRESS NOTE ---
DATE: 02/22/2019 SUBJECTIVE: Eleno is feeling somewhat better. She has she gallbladder stone. We will ask Dr. Jimenez to see her. She probably has some cholecystitis. There was some elevation in the lipase and amylase. We are going to repeat the enzymes in the morning. We will get her to Virax ointment for fever blisters. -3 cc: Yung Simons MD
[2019-02-22] MEDS: MORPHINE IV PRN (11:24)
[2019-02-22] MEDS: ZOVIRAX OINTMENT TOP SCH ×4 (11:31→22:12)
[2019-02-22] MEDS: ZOFRAN IV PRN (11:32)
[2019-02-22] MEDS ORDERED: CITRATE OF MAGNESIA PO ONE (11:54)
[2019-02-22] MEDS: PROTONIX IV SCH (16:11)
[2019-02-22] MEDS: SODIUM CHLORIDE 0.9% INJ SCH (16:11)
[2019-02-22] MEDS: ATIVAN PO SCH (22:12)
[2019-02-22] MEDS: ELAVIL PO SCH (22:12)
[2019-02-23 07:33] LABS: BASO# 0.02 X1000 (0.0-0.2); BASO% 0.4 % (0.0-0.8); EOS# 0.19 X1000 (0.0-0.7); EOS% 3.5 % (0.0-10.0); HEMATOCRIT 37.1 % (37.0-47.0); HEMOGLOBIN 11.9 g/dL (12.0-16.0); LYMPH% 37.1 % (20.5-51.1); MCH 30.9 PG (27-31); MCHC 32.1 g/dL (33-37); MCV 96.4 FL (81-99); MONO# 0.56 X1000 (0.11-0.59); MONO% 10.4 % (1.7-9.3); MPV 10.1 FL (7.4-10.4); NEUT# 2.62 X1000 (1.4-6.5); NEUT% 48.6 % (42.2-75.2); PLT 213 X1000 (130-400); RBC 3.85 XMIL (4.2-5.4); RDW 13.5 % (11.5-14.5); WBC 5.39 X1000 (4.8-10.8)
[2019-02-23 07:52] LABS: AGAP 11; ALB/GLOB RATIO 1.1; ALBUMIN 3.7 g/dL (3.5-5.0); ALKALINE PHOSPHATASE 86 U/L (32-104); BUN 6 mg/dL (8-22); CALCIUM 9.2 mg/dL (8.8-10.2); CHLORIDE 99 mmol/L (98-107); COSMO 270; CREATININE 0.8 mg/dL (0.5-0.9); ESTIMATED GFR > 60; GLUCOSE 104 mg/dL (70-104); GOT 57 U/L (10-30); GPT 28 U/L (10-36); LIPASE 31 U/L (13-60); POTASSIUM 4.3 mmol/L (3.5-5.1); SODIUM 136 mmol/L (136-145); TCO2 26 mmol/L (25-35); TOTAL BILIRUBIN 0.25 mg/dL (0.20-1.00); TOTAL PROTEIN 7.2 g/dL (6.3-8.3)
--- NOTE | 2019-02-23 09:42 | PROGRESS NOTE ---
DATE: 02/23/2019 Ms. Johansen is doing fairly well. Her repeat enzymes have come back negative. She has cholelithiasis. Dr. Jimenez has seen her. I have placed her on IV Levaquin. That might help the urinary tract infection and possible cholecystitis. -7 cc: Yung Simons MD
[2019-02-23] MEDS: LEVAQUIN 750 MG/D5W 750 MG/150 ML IVPB IV SCH (10:01)
[2019-02-23] MEDS: ZOVIRAX OINTMENT TOP SCH ×4 (10:06→20:17)
[2019-02-23] MEDS: MIRALAX PO SCH ×2 (10:06→20:16)
[2019-02-23] MEDS: SODIUM CHLORIDE 0.9% INJ SCH (16:06)
[2019-02-23] MEDS: PROTONIX IV SCH (16:06)
[2019-02-23] MEDS: D5 1/2 NS + KCL 20 MEQ 1,000 ML IV SCH ×2 (16:30→20:16)
[2019-02-23] MEDS: ATIVAN PO SCH (20:16)
[2019-02-23] MEDS: MORPHINE IV PRN (20:16)
[2019-02-23] MEDS: ELAVIL PO SCH (20:16)
[2019-02-24] MEDS: MIRALAX PO SCH ×3 (08:55→21:24)
[2019-02-24] MEDS: D5 1/2 NS + KCL 20 MEQ 1,000 ML IV SCH (08:55)
[2019-02-24] MEDS: LEVAQUIN 750 MG/D5W 750 MG/150 ML IVPB IV SCH (08:55)
[2019-02-24] MEDS: ZOVIRAX OINTMENT TOP SCH ×4 (08:56→21:26)
[2019-02-24] MEDS ORDERED: XYLOCAINE-MPF 2% ONE (10:08)
[2019-02-24] MEDS ORDERED: DIPRIVAN 1% ONE (10:09)
[2019-02-24] MEDS ORDERED: NORCURON ONE (10:13)
[2019-02-24] MEDS ORDERED: STERILE WATER INJ. ONE (10:13)
[2019-02-24] MEDS ORDERED: SENSORCAINE 0.5%-EPI 1:200,000 ONE (10:42)
[2019-02-24] MEDS ORDERED: SODIUM CHLORIDE 0.9% ONE (10:42)
[2019-02-24] MEDS ORDERED: LR 1,000 ML ONE (10:42)
[2019-02-24] MEDS ORDERED: QUELICIN (DOSE) ONE (11:49)
[2019-02-24] MEDS ORDERED: LOPRESSOR ONE (11:50)
[2019-02-24] MEDS ORDERED: APRESOLINE ONE (11:50)
[2019-02-24] MEDS ORDERED: NEO-SYNEPHRINE ONE (11:51)
[2019-02-24] MEDS ORDERED: FENTANYL ONE (11:54)
--- NOTE | 2019-02-24 11:59 | Diag Imaging Result Doc PS360 ---
EXAM: OPERATIVE CHOLANGIOGRAM 02/24/2019 HISTORY: GALLBLADDER DX TECHNIQUE: Intraoperative cholangiogram one view COMMENT: There is contrast in the common bile duct without evidence of filling defect or obstruction. There is contrast in the duodenum. IMPRESSION: No evidence of retained stones in the common bile duct. Electronically signed by Trevon Saldana 02/24/2019 11:57 AM
[2019-02-24] MEDS ORDERED: OFIRMEV 1000 MG/ISOTONIC SOLN 1,000 MG/100 ML BOTTLE ONE (12:15)
[2019-02-24] MEDS ORDERED: TORADOL ONE (12:15)
[2019-02-24] MEDS ORDERED: PHENERGAN ONE (12:22)
[2019-02-24] MEDS: DILAUDID ONE ×2 (12:26→12:35)
[2019-02-24] MEDS ORDERED: D5 1/2 NS 1,000 ML ONE (12:56)
--- NOTE | 2019-02-24 14:07 | PROGRESS NOTE ---
DATE: 02/24/2019 SUBJECTIVE: Ms. Johansen has been very symptomatic. She has cholelithiasis and she is getting cholecystectomy today. Overall condition is otherwise unchanged. We will continue with the current management. -3 cc: Yung Simons MD
--- NOTE | 2019-02-24 14:40 | PROGRESS NOTE ---
DATE: 02/24/2019 Ms. Johansen is doing fairly well. Her vital signs are stable. She is still drowsy after the surgery. She had cholecystectomy performed by Dr. Jimenez. Lungs sound clear. Heart sounds are normal. Vital signs are stable. We will continue to watch her over the weekend. cc: Yung Simons MD
[2019-02-24] MEDS ORDERED: BLISTEX MEDICATED BERRY LIP BALM TOP PRN (16:01)
[2019-02-24] MEDS: SODIUM CHLORIDE 0.9% INJ SCH (16:05)
[2019-02-24] MEDS: MORPHINE IV PRN ×3 (16:05→23:39)
[2019-02-24] MEDS: PROTONIX IV SCH (16:05)
--- NOTE | 2019-02-24 19:47 | OPERATIVE NOTE ---
PROCEDURE DATE: 02/24/2019 PREOPERATIVE DIAGNOSIS: Chronic cholecystitis and cholelithiasis. POSTOPERATIVE DIAGNOSIS: Chronic cholecystitis and cholelithiasis. PROCEDURE: Laparoscopic cholecystectomy with cholangiogram. SURGEON: Guido Jimenez MD. DESCRIPTION OF PROCEDURE: The patient was brought to the operating room. After satisfactory induction of IV and endotracheal anesthesia, athrombic TEDs were placed. Her abdomen was broadly prepped and draped in the appropriate manner for laparoscopy. Initially, the infraumbilical area was infiltrated with 0.25% Marcaine with epinephrine. Dissection was taken sharply down through skin and subcutaneous tissue. The fascia was tacked with 0 Surgilon and incised. Under direct visualization, a Fina trocar was placed. The abdomen was insufflated to 3.5 L of carbon dioxide. Again, after infiltration with Marcaine and epinephrine, one 10 and two 5 mm trocars were placed. The patient was repositioned. The gallbladder was grasped and retracted superiorly. There were fairly dense omental and duodenal adhesions to the gallbladder. These were peeled down with no duodenal injury. The hilar structures were dissected. The cystic duct cholangiogram revealed good flow of contrast into the duodenum with no obstruction. The catheter was subsequently removed. The duct was doubly clipped and divided, as was the cystic artery. The gallbladder was subsequently dissected from the liver bed with the use of the monopolar scissors. On completion, it was freed up, placed in an EndoCatch bag, and removed. Reinspection of the liver bed revealed small bleeding points that were controlled by electrocautery or Surgicel gauze. The subhepatic and subphrenic spaces were subsequently aspirated free of a small amount of bile and blood. All trocars were removed after abdominal deflation. The subumbilical incision underwent fascial closures of 0 Surgilon. All skin incisions were closed with subcuticular 4-0 Vicryl. Steri-Strips, Telfa, and OpSite's were applied. The patient was awakened and extubated in the operating room and transferred to Recovery. ESTIMATED BLOOD LOSS: Around 10 mL. cc: MD Yung Cronin MD
[2019-02-24] MEDS: NORCO-10 PO PRN (19:51)
[2019-02-24] MEDS: D5 1/2 NS 1,000 ML IV SCH (20:15)
[2019-02-24] MEDS: ELAVIL PO SCH (21:23)
[2019-02-24] MEDS: ATIVAN PO SCH (21:23)
[2019-02-25] MEDS: NORCO-10 PO PRN ×2 (01:43→21:30)
[2019-02-25] MEDS: D5 1/2 NS 1,000 ML IV SCH ×4 (02:46→21:32)
[2019-02-25] MEDS: MORPHINE IV PRN ×2 (06:50→14:35)
[2019-02-25 06:58] LABS: BASO# 0.01 X1000 (0.0-0.2); BASO% 0.2 % (0.0-0.8); EOS# 0.14 X1000 (0.0-0.7); HEMATOCRIT 37.5 % (37.0-47.0); HEMOGLOBIN 11.9 g/dL (12.0-16.0); LYMPH# 1.58 X1000 (1.2-3.4); LYMPH% 33.3 % (20.5-51.1); MCH 30.6 PG (27-31); MCHC 31.7 g/dL (33-37); MCV 96.4 FL (81-99); MONO# 0.48 X1000 (0.11-0.59); MONO% 10.1 % (1.7-9.3); MPV 10.3 FL (7.4-10.4); NEUT# 2.53 X1000 (1.4-6.5); NEUT% 53.4 % (42.2-75.2); PLT 184 X1000 (130-400); RBC 3.89 XMIL (4.2-5.4); RDW 13.6 % (11.5-14.5); WBC 4.74 X1000 (4.8-10.8)
[2019-02-25 07:35] LABS: AGAP 10; ALB/GLOB RATIO 1.1; ALBUMIN 3.5 g/dL (3.5-5.0); ALKALINE PHOSPHATASE 136 U/L (32-104); AMYLASE 54 U/L (20-200); BUN 6 mg/dL (8-22); CALCIUM 8.4 mg/dL (8.8-10.2); CHLORIDE 99 mmol/L (98-107); COSMO 264; CREATININE 0.8 mg/dL (0.5-0.9); ESTIMATED GFR > 60; GLUCOSE 106 mg/dL (70-104); GOT 416 U/L (10-30); GPT 159 U/L (10-36); LIPASE 43 U/L (13-60); SODIUM 133 mmol/L (136-145); TCO2 24 mmol/L (25-35); TOTAL BILIRUBIN 1.04 mg/dL (0.20-1.00); TOTAL PROTEIN 6.6 g/dL (6.3-8.3)
[2019-02-25] MEDS: MIRALAX PO SCH ×2 (09:50→21:30)
[2019-02-25] MEDS: ZOVIRAX OINTMENT TOP SCH ×4 (09:54→21:32)
[2019-02-25] MEDS: LEVAQUIN 500 MG/D5W 500 MG/100 ML IVPB IV SCH (09:55)
[2019-02-25] MEDS: ZOFRAN IV PRN (13:20)
[2019-02-25] MEDS: PROTONIX IV SCH (17:01)
[2019-02-25] MEDS: SODIUM CHLORIDE 0.9% INJ SCH (17:01)
--- NOTE | 2019-02-25 17:05 | PROGRESS NOTE ---
DATE: 02/25/2019 SUBJECTIVE: A 73-year-old, white female, admitted to the hospital on 02/21/2019, with recurrent abdominal pain, vomiting. The patient has been diagnosed with gallstone pancreatitis. The patient is in a lot of pain on the right side. Dr. Jimenez did a laparoscopic cholecystectomy and intraoperative cholangiogram. No evidence of retained stones in the bile duct. PAST MEDICAL HISTORY: Reviewed. PAST SURGICAL HISTORY: Reviewed. MEDICINES: Reviewed. ALLERGIES: Not known. PHYSICAL EXAMINATION: Temperature is 98 degrees, pulse 86, blood pressure is stable.HEENT: Within normal limits. No anemia. No cyanosis. No jaundice. Neck: Supple. No lymphadenopathy. Chest: Bilateral air entry. Heart sounds are regular. Belly is soft. Laparoscopic scars are noted. No obvious deficits. INVESTIGATIONS: White cell count 4.74, hematocrit 37.5, platelets 184,000. Sodium 133, potassium 4.0, chloride 99, BUN 6, creatinine 0.8, glucose 106. LFTs are up compared to yesterday and the day before yesterday. Urine cultures, mixed duong. ASSESSMENT AND PLAN: 1. Gallstone pancreatitis is better. 2. We will hold the discharge. 3. Continue IV fluids as per Dr. Jimenez. Currently, she is receiving IV antibiotics with Levaquin, Ativan for bedtime for anxiety and sleep. 4. Gastrointestinal prophylaxis with IV Protonix. 5. Chronic insomnia. On Elavil. 6. Repeat the labs in the morning. Currently, on full liquid diet. We will follow up. LEVEL OF DOCUMENTATION: 35 minutes. cc: MD Yung Nina MD
[2019-02-25] MEDS: ELAVIL PO SCH (21:30)
[2019-02-25] MEDS: ATIVAN PO SCH (21:30)
[2019-02-26] MEDS: D5 1/2 NS 1,000 ML IV SCH ×2 (06:07→09:37)
[2019-02-26 07:25] LABS: BASO# 0.01 X1000 (0.0-0.2); BASO% 0.2 % (0.0-0.8); EOS# 0.21 X1000 (0.0-0.7); EOS% 3.9 % (0.0-10.0); HEMOGLOBIN 12.5 g/dL (12.0-16.0); LYMPH# 1.75 X1000 (1.2-3.4); LYMPH% 32.6 % (20.5-51.1); MCH 30.7 PG (27-31); MCHC 32.1 g/dL (33-37); MCV 95.8 FL (81-99); MONO# 0.55 X1000 (0.11-0.59); MONO% 10.2 % (1.7-9.3); MPV 10.2 FL (7.4-10.4); NEUT# 2.85 X1000 (1.4-6.5); NEUT% 53.1 % (42.2-75.2); PLT 177 X1000 (130-400); RBC 4.07 XMIL (4.2-5.4); RDW 13.6 % (11.5-14.5); WBC 5.37 X1000 (4.8-10.8)
[2019-02-26 07:43] LABS: AGAP 11; ALBUMIN 3.5 g/dL (3.5-5.0); ALKALINE PHOSPHATASE 159 U/L (32-104); BUN 3 mg/dL (8-22); CHLORIDE 102 mmol/L (98-107); COSMO 272; CREATININE 0.7 mg/dL (0.5-0.9); ESTIMATED GFR > 60; GLUCOSE 99 mg/dL (70-104); GOT 212 U/L (10-30); GPT 135 U/L (10-36); SODIUM 138 mmol/L (136-145); TCO2 25 mmol/L (25-35); TOTAL BILIRUBIN 0.64 mg/dL (0.20-1.00); TOTAL PROTEIN 6.9 g/dL (6.3-8.3)
[2019-02-26] MEDS: ZOFRAN IV PRN (09:35)
[2019-02-26] MEDS: ZOVIRAX OINTMENT TOP SCH ×4 (09:36→20:13)
[2019-02-26] MEDS: MIRALAX PO SCH ×2 (09:36→20:12)
[2019-02-26] MEDS: LEVAQUIN 500 MG/D5W 500 MG/100 ML IVPB IV SCH (09:36)
[2019-02-26] MEDS: MORPHINE IV PRN (09:45)
[2019-02-26] MEDS ORDERED: DULCOLAX PR ONE (12:45)
[2019-02-26 13:08] LABS: CALCIUM 9.7 mg/dL (8.8-10.2)
--- NOTE | 2019-02-26 15:54 | PROGRESS NOTE ---
DATE: 02/26/2019 SUBJECTIVE: The patient has incontinence of urine. Complains of right upper quadrant pain. The patient is anxious to get out of the bed, going to the bathroom, eating well. PHYSICAL EXAMINATION: Vital signs: Temperature is 98.8 degrees, pulse 92, blood pressure 146/78. HEENT: Within normal limits. Neck: Supple. Chest: Clear. Heart: Sounds are regular. Abdomen: Belly is soft, nontender. Good bowel sounds. Neurologic: No neurological deficits. INVESTIGATIONS: White cell count 5.3, hematocrit 39, platelet 177,000. SMA 7 is normal. LFTs are coming down. ASSESSMENT: 1. Gallstone pancreatitis, better. 2. Status post laparoscopic cholecystectomy, elevated liver function tests . Intraoperative cholangiogram is negative. 3. Discontinue fluids and out of the bed. We will check the labs in the morning and continue present treatment. Dr. Simons will initiate flu and pneumonia prior to the discharge. The patient is receiving IV antibiotics with Levaquin and will follow up. LEVEL OF DOCUMENTATION: 25 minutes. cc: MD Yung Nina MD
[2019-02-26] MEDS: PROTONIX IV SCH (16:25)
[2019-02-26] MEDS: SODIUM CHLORIDE 0.9% INJ SCH (16:25)
[2019-02-26] MEDS: ATIVAN PO SCH (20:12)
[2019-02-26] MEDS: NORCO-10 PO PRN (20:12)
[2019-02-26] MEDS: ELAVIL PO SCH (20:12)
[2019-02-27] MEDS: MORPHINE IV PRN ×2 (06:21→23:21)
[2019-02-27 07:42] LABS: BASO# 0.01 X1000 (0.0-0.2); BASO% 0.2 % (0.0-0.8); EOS# 0.19 X1000 (0.0-0.7); EOS% 3.3 % (0.0-10.0); HEMATOCRIT 35.6 % (37.0-47.0); HEMOGLOBIN 11.3 g/dL (12.0-16.0); LYMPH# 1.88 X1000 (1.2-3.4); LYMPH% 32.9 % (20.5-51.1); MCH 30.5 PG (27-31); MCHC 31.7 g/dL (33-37); MCV 96.2 FL (81-99); MONO% 8.7 % (1.7-9.3); MPV 10.2 FL (7.4-10.4); NEUT# 3.14 X1000 (1.4-6.5); NEUT% 54.9 % (42.2-75.2); PLT 191 X1000 (130-400); RDW 13.4 % (11.5-14.5); WBC 5.72 X1000 (4.8-10.8)
[2019-02-27 08:30] LABS: AGAP 12; ALB/GLOB RATIO 1.1; ALBUMIN 3.6 g/dL (3.5-5.0); ALKALINE PHOSPHATASE 140 U/L (32-104); BUN 6 mg/dL (8-22); CALCIUM 9.2 mg/dL (8.8-10.2); CHLORIDE 99 mmol/L (98-107); COSMO 272; CREATININE 0.8 mg/dL (0.5-0.9); ESTIMATED GFR > 60; GLUCOSE 83 mg/dL (70-104); GOT 94 U/L (10-30); GPT 86 U/L (10-36); SODIUM 138 mmol/L (136-145); TCO2 27 mmol/L (25-35); TOTAL BILIRUBIN 0.58 mg/dL (0.20-1.00); TOTAL PROTEIN 6.9 g/dL (6.3-8.3)
[2019-02-27] MEDS: MIRALAX PO SCH ×2 (10:12→21:43)
[2019-02-27] MEDS: LEVAQUIN 500 MG/D5W 500 MG/100 ML IVPB IV SCH (10:12)
[2019-02-27] MEDS: ZOVIRAX OINTMENT TOP SCH ×4 (10:12→21:42)
[2019-02-27] MEDS: NORCO-10 PO PRN (11:06)
[2019-02-27] MEDS: SODIUM CHLORIDE 0.9% INJ SCH (17:34)
[2019-02-27] MEDS: PROTONIX IV SCH (17:34)
[2019-02-27] MEDS: ATIVAN PO SCH (23:18)
[2019-02-27] MEDS: ELAVIL PO SCH (23:18)
[2019-02-28] MEDS: NORCO-10 PO PRN (06:08)
[2019-02-28 08:08] VITALS: BP 124/67
--- NOTE | 2019-02-28 08:24 | PROGRESS NOTE ---
DATE: 02/27/2019 Ms. Johansen is doing better. Her liver enzymes are improving. She is still having some abdominal pain and mild nausea. We will continue to watch her closely. cc: Yung Simons MD
--- NOTE | 2019-02-28 11:11 | PROGRESS NOTE ---
DATE: 02/28/2019 Ms. Johansen is doing fairly well. Her lungs are clear. Heart sounds are normal. Her appetite is better. She does not have much pain. She is feeling better. Abdomen is soft and nontender. We will discharge her today. -8 cc: Yung Simons MD
--- NOTE | 2019-03-01 06:22 | DISCHARGE SUMMARY ---
ADMISSION DATE: 02/20/2019 DISCHARGE DATE: 02/28/2019 HISTORY: Ms Johansen, who is a 73-year-old white female, was admitted with recurrent vomiting, nausea, abdominal pain. DIAGNOSTIC DATA: In the hospital, EKG had revealed a normal sinus rhythm, normal axis deviation and no significant change was found. A CT scan of the abdomen had revealed constipation, diverticulosis, small gallstones in the gallbladder. There were some chronic bilateral L5 pars defects, moderate degenerative changes in the lumbar spine. Operative cholangiogram really did not reveal any evidence of retained stones in the common bile duct. LABORATORY DATA: Revealed initial white count was normal. Hemoglobin was 11.3. Electrolytes were normal. BUN and creatinine were normal. Total bilirubin was normal. However, alkaline phosphatase which was 86 had gone to 159, the last alkaline phosphatase was 140. AST and ALT were elevated. AST was 416, ALT was 159. It came down to 94 and 86 respectively. Urinalysis was unremarkable except for 10 to 20 WBCs. COURSE IN THE HOSPITAL: She was treated with IV Levaquin as well as symptomatic treatment. Her amylase was elevated, lipase was 124, amylase was 149 and both of them came down to normal. Amylase was 54, lipase was 43. She had cholelithiasis with cholecystitis. Dr. Jimenez was consulted, he did the cholecystectomy, he did cholangiography operative and it was negative for any biliary stones. We are going to discharge her today. She is tolerating the food well. We will be seeing her in the office in about 7 to 10 days. I will give her prescriptions for Ativan 1 mg at bedtime and Elavil 100 mg at bedtime. cc: Yung Simons MD
== END 2019-02-28 10:42 | disposition home or self-care (01) | DRG 417 ==
LOC: DIRADM 15:02 → 3N 15:34
PROVIDERS: ADMIT Internal Medicine; ATTEND Internal Medicine

== ENCOUNTER 2019-04-05 11:13 | Inpatient (IN) ==
--- NOTE | 2019-04-05 13:00 | EKG Report ---
Test Performed on : 04/05/2019 12:49:24 PM Test Reason : chest pain nausea Blood Pressure : / mmHG Vent. Rate : 069 BPM Atrial Rate : 069 BPM P-R Int : 178 ms QRS Dur : 078 ms QT Int : 414 ms P-R-T Axes : 064 021 054 degrees QTc Int : 443 ms Normal sinus rhythm. Normal ECG When compared with ECG of 20-FEB-2019 16:18, No significant change was found Confirmed by Ronak CONNORS, Yung ([id number]) on 04/05/2019 5:55:59 PM
--- NOTE | 2019-04-05 13:21 | Diag Imaging Result Doc PS360 ---
EXAM: CHEST-PORTABLE 04/05/2019 HISTORY: nausea chest pain TECHNIQUE: AP chest at 1315 COMMENT: Considering differences in technique there has been no significant change since 02/20/2019. IMPRESSION: Stable chest. Electronically signed by Trevon Saldana 04/05/2019 1:18 PM
--- NOTE | 2019-04-05 13:34 | Diag Imaging Result Doc PS360 ---
CT HEAD W/O CONTRAST - 04/05/2019 INDICATION: fall trauma to head COMPARISON: 05/17/2017 FINDINGS: The ventricles and sulci are normal in size and contour. No intracranial mass or hemorrhage. The skull is intact. The sinuses mastoids and middle ears are clear. IMPRESSION: Negative exam. This exam was performed using automated exposure control, adjustment of mA or kV according to patient size, and/or use of iterative reconstruction technique Electronically signed by Darvin Godwin 04/05/2019 1:32 PM
[2019-04-05 13:59] LABS: BASO# 0.01 X1000 (0.0-0.2); BASO% 0.2 % (0.0-0.8); EOS# 0.15 X1000 (0.0-0.7); EOS% 2.9 % (0.0-10.0); HEMATOCRIT 37.9 % (37.0-47.0); HEMOGLOBIN 11.7 g/dL (12.0-16.0); LYMPH# 1.91 X1000 (1.2-3.4); MCH 30.3 PG (27-31); MCHC 30.9 g/dL (33-37); MCV 98.2 FL (81-99); MONO# 0.39 X1000 (0.11-0.59); MONO% 7.6 % (1.7-9.3); MPV 10.1 FL (7.4-10.4); NEUT% 52.3 % (42.2-75.2); PLT 203 X1000 (130-400); RBC 3.86 XMIL (4.2-5.4); RDW 13.4 % (11.5-14.5); WBC 5.16 X1000 (4.8-10.8)
[2019-04-05] MEDS: D5 1/2 NS + KCL 10 MEQ 1,000 ML IV SCH (14:00)
[2019-04-05 15:15] LABS: AGAP 13; ALB/GLOB RATIO 1.3; ALBUMIN 4.5 g/dL (3.5-5.0); ALKALINE PHOSPHATASE 204 U/L (32-104); AMYLASE 92 U/L (20-200); BUN 7 mg/dL (8-22); CALCIUM 9.6 mg/dL (8.8-10.2); CHLORIDE 99 mmol/L (98-107); COSMO 271; CREATININE 0.8 mg/dL (0.5-0.9); ESTIMATED GFR > 60; GLUCOSE 90 mg/dL (70-104); GOT 188 U/L (10-30); GPT 113 U/L (10-36); POTASSIUM 3.9 mmol/L (3.5-5.1); SODIUM 137 mmol/L (136-145); TCO2 25 mmol/L (25-35); TOTAL BILIRUBIN 0.43 mg/dL (0.20-1.00); TOTAL PROTEIN 8.1 g/dL (6.3-8.3)
[2019-04-05 16:58] LABS: URINE SOURCE CLEAN CATCH
[2019-04-05 17:02] LABS: BILIRUBIN URINE NEGATIVE (NEGATIVE); BLOOD URINE NEGATIVE (NEGATIVE); COLOR YELLOW; GLUCOSE URINE NEGATIVE (NEGATIVE); KETONE URINE NEGATIVE (NEGATIVE); LEUKOCYTES URINE LARGE (NEGATIVE); NITRITE URINE NEGATIVE (NEGATIVE); PH URINE 6.5; PROTEIN URINE NEGATIVE (NEGATIVE); SP GRAVITY URINE 1.009; TURBIDITY URINE HAZY (CLEAR); UROBILINOGEN URINE NORMAL (NORMAL)
[2019-04-05 17:07] LABS: UR EPITHELIAL CELLS <10 /HPF (<10); URINE BACTERIA 1+ /HPF; URINE RBC <10 /HPF (<10); URINE WBC TNTC /HPF (<10)
[2019-04-05] MEDS: NORCO-10 PO PRN ×2 (17:10→22:11)
[2019-04-05 17:13] LABS: URINE CRYSTALS NONE SEEN
[2019-04-05] MEDS: ZOFRAN IV PRN (18:46)
[2019-04-05] MEDS: LEVAQUIN 750 MG/D5W 750 MG/150 ML IVPB IV SCH (18:49)
--- NOTE | 2019-04-05 20:46 | Diag Imaging Result Doc PS360 ---
EXAM: FOOT COMPLETE RIGHT 04/05/2019 HISTORY: Rt Foot pain TECHNIQUE: Right foot three views COMMENT: There is some hallux valgus. There is plantar spurring the calcaneus. There is no evidence of fracture or dislocation. IMPRESSION: No acute bony abnormality. Electronically signed by Trevon Saldana 04/05/2019 8:43 PM
--- NOTE | 2019-04-05 21:08 | HISTORY AND PHYSICAL ---
HISTORY OF PRESENT ILLNESS: Ms. Johansen, who is a 73-year-old white female, comes to the office with history of frequent falls. She had a head injury with 1 fall. Since then, she has been having severe headaches and dizziness. She was sick in the stomach, vomited at least 2 times in our office. Persistent headache and was slightly dehydrated. We decided to admit her to the hospital. She is a known case of severe degenerative arthritis in the knees as well as lumbar spine. Recently she had cholecystectomy performed. Her liver enzymes are slightly elevated at that time. She also had a hysterectomy performed and bladder repair performed for urinary incontinence. There is a history of fracture of the left few ribs in the past from a fall. Other details are noncontributory. SOCIAL HISTORY: She is a nonsmoker, does not drink. ALLERGIES: She is not allergic to any medications. REVIEW OF SYSTEMS: General: She is weak. Cardiopulmonary: Denied for any chest pain or shortness of breath. GI: She had persistent nausea and vomiting with some epigastric pain intermittently. Neurological: Has a history of headache, dizziness, history of fall. She injured her head. Hit her head on the ground just the day before. MEDICATIONS: Include simvastatin 40 mg, losartan 100 mg, [place] 10 t.i.d. p.r.n., amitriptyline 100 mg at bedtime. PHYSICAL EXAMINATION: GENERAL: The patient is alert and oriented. VITAL SIGNS: Reveal temperature normal, pulse 77 per minute, blood pressure 130/84. HEAD: Normocephalic. PUPILS: PERRLA. Fundus examination not done. NECK: Supple. JVP normal. ENT: Examination unremarkable. There is no evidence of lymphadenopathy, thyroid enlargement, pedal edema, calf tenderness, anemia, cyanosis or clubbing. Pedal pulses well felt. BREAST EXAM: Normal. CHEST: Normal inspection. LUNGS: Clear on auscultation. PMI in the normal position. HEART: Sounds normal. No murmur, gallop or rub noted. ABDOMEN: Nondistended. There was definite tenderness in the epigastric region. No guarding, rigidity, free fluid, masses, or organomegaly. Bowel sounds normal. RECTAL: Deferred. GOLF RANGE ATTENDANT: Higher functions normal. Cranial nerves normal. Motor and sensory system examination unremarkable. Deep tendon reflexes normal. Plantars downgoing. SKULL AND SPINE EXAMINATION: Normal for age. No cerebellar signs or signs of meningeal irritation. LOCAL MOTOR EXAM: Reveals painful movements of both knees as well as lumbar spine. SLR positive. SKIN EXAM: Reveals presence of mild dehydration and some bruising around the head. IMPRESSION: 1. History of falls. 2. Head injury. 3. Recurrent vomiting. 4. Mild dehydration. PLAN: To admit her to the hospital. Start IV fluids. Neuro checks. Get a CT scan of the brain. cc: Yung Simons MD
--- NOTE | 2019-04-05 21:57 | Diag Imaging Result Doc PS360 ---
EXAM: CT ABD/PELVIS W/PO AND IV CON 04/05/2019 HISTORY: abd pain, vomiting TECHNIQUE: This exam was performed using automated exposure control, adjustment of mA or kV according to patient size, and/or use of iterative reconstruction technique. COMMENT: There is a platelike opacity in the left lower lobe which was also present on 02/25/2019 and is probably fibrotic. Additional opacities in both costophrenic sulci are present which were not present previously and are probably atelectatic. The aorta is nondistended and there is contrast in the renal and mesenteric arteries. There is no evidence of nephrolithiasis or hydronephrosis. There is stool throughout the colon. The small bowel is not distended. There is diverticulosis in the distal descending colon. Pelvis: There is no evidence of diverticulitis. There are multiple diverticula in the sigmoid colon. The appendix is normal in appearance. There has been hysterectomy. The urinary bladder is not distended. There is bilateral spondylolysis at L5. There are degenerative disc changes in the lumbar spine IMPRESSION: 1. Worsened biliary dilatation of uncertain etiology. 2. Constipation. 3. Diverticulosis coli. Other nonacute findings as described above. Electronically signed by Trevon Saldana 04/05/2019 9:55 PM
[2019-04-05] MEDS: ZOCOR PO SCH (22:11)
[2019-04-05] MEDS: PRILOSEC PO SCH (22:11)
[2019-04-05] MEDS: ELAVIL PO SCH (22:30)
[2019-04-06] MEDS: MIRALAX PO PRN ×2 (00:27→08:13)
[2019-04-06] MEDS: ZOFRAN IV PRN ×3 (00:27→19:48)
[2019-04-06] MEDS: D5 1/2 NS + KCL 10 MEQ 1,000 ML IV SCH (06:42)
[2019-04-06] MEDS: COZAAR PO SCH (08:13)
--- NOTE | 2019-04-06 08:56 | PROGRESS NOTE ---
DATE: 04/06/2019 Ms. Johansen is feeling somewhat better this morning. Her lungs are clear. Abdomen is soft, nontender. She has not vomited this morning. Liver enzymes are elevated including ALT, AST, and alkaline phosphatase. CT scan shows dilatation of the bile ducts. I am going to ask Dr. Jimenez. She recently underwent cholecystectomy. We may have to get further testing like ERCP at a later date. Foot x-ray was negative. She has some constipation. We are going to put her on a GI soft diet. cc: Yung Simons MD
[2019-04-06] MEDS: NORCO-10 PO PRN ×2 (10:07→18:34)
[2019-04-06] MEDS ORDERED: DIPRIVAN 1% 500 MG/50 ML BOTTLE ONE (11:56)
[2019-04-06 12:07] LABS: PROTIME 13.2 Seconds (11.0-16.0)
[2019-04-06 12:08] LABS: PTT 28.1 Seconds (22.3-41.8)
[2019-04-06] MEDS ORDERED: INDOCIN ONE (13:27)
--- NOTE | 2019-04-06 16:58 | Diag Imaging Result Doc PS360 ---
MRI MRCP (ABD W/O CONTRAST) - 04/06/2019 INDICATION: Choloedocolithiasis TECHNIQUE: COMPARISON: CT abdomen pelvis 04/05/2019 FINDINGS: There is stable appearing dilation of the common bile duct which measures about 13.6 mm. This is similar to prior exams. No filling defect or stricture. There is smooth tapering in the pancreatic head. The main pancreatic duct is normal in caliber. There is perhaps mild intrahepatic biliary dilation. No mass or fluid collection. Solid abdominal organs are all normal. IMPRESSION: Indeterminate but benign-appearing dilation of the biliary collecting system. If this is functionally obstructed, that this may represent spasm at the sphincter of Oddi. No evidence of stones. Electronically signed by Darvin Godwin 04/06/2019 4:56 PM
[2019-04-06] MEDS: LEVAQUIN 750 MG/D5W 750 MG/150 ML IVPB IV SCH (18:33)
[2019-04-06] MEDS: ZOCOR PO SCH (20:19)
[2019-04-06] MEDS: PRILOSEC PO SCH (20:19)
[2019-04-06] MEDS: ELAVIL PO SCH (20:20)
[2019-04-07] MEDS: D5 1/2 NS + KCL 10 MEQ 1,000 ML IV SCH (01:42)
[2019-04-07 05:23] LABS: BASO# 0.01 X1000 (0.0-0.2); BASO% 0.2 % (0.0-0.8); EOS# 0.14 X1000 (0.0-0.7); EOS% 3.3 % (0.0-10.0); HEMATOCRIT 37.1 % (37.0-47.0); HEMOGLOBIN 11.5 g/dL (12.0-16.0); LYMPH# 1.85 X1000 (1.2-3.4); MCH 30.3 PG (27-31); MCV 97.9 FL (81-99); MONO# 0.32 X1000 (0.11-0.59); MONO% 7.6 % (1.7-9.3); MPV 9.9 FL (7.4-10.4); NEUT# 1.88 X1000 (1.4-6.5); NEUT% 44.9 % (42.2-75.2); PLT 170 X1000 (130-400); RBC 3.79 XMIL (4.2-5.4); RDW 13.4 % (11.5-14.5)
[2019-04-07 05:41] LABS: INR 1.03; PROTIME 13.6 Seconds (11.0-16.0); PTT 27.3 Seconds (22.3-41.8)
[2019-04-07 05:56] LABS: AGAP 11; ALB/GLOB RATIO 1.1; ALBUMIN 3.5 g/dL (3.5-5.0); ALKALINE PHOSPHATASE 189 U/L (32-104); AMYLASE 91 U/L (20-200); BUN 7 mg/dL (8-22); CALCIUM 8.8 mg/dL (8.8-10.2); CHLORIDE 101 mmol/L (98-107); COSMO 270; CREATININE 0.8 mg/dL (0.5-0.9); ESTIMATED GFR > 60; GLUCOSE 106 mg/dL (70-104); GOT 167 U/L (10-30); GPT 127 U/L (10-36); POTASSIUM 4.2 mmol/L (3.5-5.1); SODIUM 136 mmol/L (136-145); TCO2 24 mmol/L (25-35); TOTAL BILIRUBIN 0.38 mg/dL (0.20-1.00); TOTAL PROTEIN 6.7 g/dL (6.3-8.3)
[2019-04-07] MEDS: COZAAR PO SCH (08:27)
[2019-04-07 08:36] VITALS: BP 143/65
[2019-04-07] MEDS: MIRALAX PO PRN (08:40)
[2019-04-07] MEDS ORDERED: CITRATE OF MAGNESIA PO ONE (09:30)
[2019-04-07] MEDS ORDERED: FLEET ENEMA PR ONE ×2 (09:34→21:00)
--- NOTE | 2019-04-07 12:45 | PROGRESS NOTE ---
DATE: 04/07/2019 SUBJECTIVE: Ms Johansen is doing better. She is eating. She has some mild sore throat. She had MRCP done yesterday which revealed the same amount of dilatation of the bile duct without any definite evidence of stones. Her bilirubin is normal. The AST and alkaline phosphatase had come down to some extent. We will probably discharge her today upon request. I am going to repeat the liver enzymes later on. FINAL DIAGNOSIS: 1. Mild hepatitis. 2. Nonicteric cholestasis. 3. Elevated alkaline phosphatase. 4. Severe gastritis. 5. Urinary tract infection. She will be prescribed Levaquin for the urinary tract infection and then discharged upon request. cc: Yung Simons MD
--- NOTE | 2019-04-07 18:17 | GASTROENTEROLOGY CONSULTATION ---
DATE: 04/07/2019 REASON FOR CONSULTATION: Elevated liver function tests, history of cholecystectomy. HISTORY OF PRESENT ILLNESS: This is a 73-year-old female who came in to see her primary physician Dr. Simons after having frequent falls. She had headache and dizziness after falling. She had also had some abdominal pain. She was brought into the hospital for further evaluation and found to have elevated liver enzymes. We were asked to see her by Dr. Jimenez for the possibility of an ERCP. The patient was also seen on 04/06/[address] Mann. After discussion with the patient, she did not want to proceed with an ERCP because of the risk of pancreatitis. She has had pancreatitis in the past. An MRCP was done instead on 04/06/2019. Findings showed indeterminate but benign-appearing dilation of the biliary collecting system. Questionable spasm at the sphincter of Oddi with no evidence of stones. Her liver function tests today have improved slightly. Total bilirubin 0.10, AST 167, ALT 127, alkaline phosphatase 189. She still reports some abdominal pain. PAST MEDICAL HISTORY: Hypercholesterolemia, arthritis, history of IBS, history of urinary incontinence and bladder repair, history of uterine cancer, status post hysterectomy. PAST SURGICAL HISTORY: Cataract surgery, hysterectomy and bladder tack. ALLERGIES: No known drug allergies. HOME MEDICATIONS: Elavil 100 mg every night, [place] 10 every 4 hours as needed, Cozaar 100 mg daily, omeprazole 40 mg daily, Zocor 20 mg every night, MiraLAX 17 g daily as needed. SOCIAL HISTORY: Denies tobacco use. No alcohol use. REVIEW OF SYSTEMS: Per history of present illness. PHYSICAL EXAMINATION: Vital signs: Temperature 98.5 degrees, pulse 80, respirations 16, blood pressure 143/65. Generally the patient is awake and alert, in no acute distress. She does complain of some abdominal pain.Respiratory: Lung sounds essentially clear. Cardiovascular: Regular rate and rhythm. Abdomen: Tenderness generalized, otherwise soft with positive bowel sounds. LABORATORY DATA: Hematology: WBC 4.20, hemoglobin 11.5, hematocrit 37.1, MCV 97.9, platelets 170,000. Coagulation: Pro time 13.6, INR 1.03, PTT 27.3. Chemistry: Sodium 136, potassium 4.2, chloride 101, CO2 is 24, BUN 7, creatinine 0.8, glucose 106. Total bilirubin 0.38, AST 167, ALT 127, alkaline phosphatase 189, amylase 91. DIAGNOSTIC DATA: Abdominal/pelvis CT scan showed worsening biliary dilatation of uncertain etiology; constipation and diverticulosis. An MRCP that was done at yesterday showed indeterminate benign-appearing dilation of the biliary collecting system; possibility of spasm at the sphincter of Oddi. ASSESSMENT AND PLAN: 1. Elevated liver function tests. 2. History of recent cholecystectomy on 02/24/[address] Jimenez. Operative cholangiogram showed no evidence of retained stones. Recent magnetic resonance cholangiopancreatography did not show any evidence of stones; possibility of sphincter of Oddi dysfunction. Would continue symptomatic treatment and monitor her liver function tests. If symptoms continue and liver function tests continue to be elevated, she may need referral as an outpatient for possible sphincterotomy at [facility]. Would recommend she follow up with us as an outpatient for further evaluation, and referral to Dr. Nelson at [facility] if needed. Further plans to be made according to her progress. I have discussed this case with Dr. Mann. Dictated by ANSHU Beltre for Seun Mann MD cc: ANSHU Sam MD Amit V. Vora, MD
--- NOTE | 2019-04-08 10:03 | DISCHARGE SUMMARY ---
ADMISSION DATE: 04/05/2019 DISCHARGE DATE: 04/07/2019 BRIEF HISTORY: Ms. Johansen who is a 73-year-old white female, was admitted with a history of fall, head injury, persistent vomiting, mild dehydration. DIAGNOSTIC DATA: In the hospital, chest x-ray was stable chest. A CT scan of the abdomen revealed worsened biliary dilatation of uncertain etiology, constipation, diverticulosis. CT scan of the brain and head was negative for any acute intracranial hemorrhage. Foot x-ray was negative. LABORATORY DATA: Revealed presence of normal white count, hemoglobin was 11.7. INR was 1.03. Liver enzymes were elevated. AST came down from 188 to 167, alkaline phosphatase came down from 204 to 189, ALT actually went up from 113 to 127. Bilirubin, however, was completely normal. Electrolytes were normal. BUN and creatinine were normal. Amylase was normal. Urinalysis had 200 WBCs and 1+ bacteria. Blood culture and urine cultures have been negative. COURSE IN THE HOSPITAL: She was given IV fluids. IV Levaquin was started. Since the liver enzymes are up and had recent cholecystectomy, we decided to get a surgical consult with Dr. Jimenez who in turn asked Dr. Mann to see her, and Dr. Mann had her MRCP done which was unremarkable. There were no stones and there was no extra dilatation of the biliary ducts. She is feeling better. We will discharge her with Levaquin 750 mg daily for 5 days and Zofran ODT 4 mg t.i.d. p.r.n. #21, and she will be seen in the office in about in about 2 weeks where we will do the liver enzymes and then we will decide about further management. FINAL DIAGNOSES: 1. Acute urinary tract infection. 2. Vomiting. 3. Hepatic dysfunction. cc: Yung Simons MD
[2019-04-08 13:49] LABS: HEPATITIS PROFILE ACUTE SEE COMMENTS
== END 2019-04-07 14:06 | disposition home or self-care (01) | DRG 442 ==
LOC: DIRADM 11:13 → EDIPHOLD 12:12 → 1N 15:45
PROVIDERS: ADMIT Internal Medicine; ATTEND Internal Medicine